=== PATIENT | female | born 1955 | race Two or more races ===

== ENCOUNTER → 2018-06-10 | Day surgery (SDC) | payer OTHER, MEDICAID ==
[~2018-06-10] MED LIST: ALBUTEROL SULFATE 2.5 MG/3 ML NEBU. NEB PRN; AMLO10TA6 PO; ASPI81TA50 PO; ATEN100T PO; ATROPINE 0.5 MG/5 ML DISP.SYRIN. IV PRN; CETI10TA22 PO; DULO60CA6 PO; IV RINGERS SOLUTION,LACTATED 1,000 ML IV SCH; LEVO175T5 PO; LIDOCAINE 2% PF Vial for OR 5 ML VIAL. ONE; NALOXONE 0.4 MG/ML VIAL. IV PRN; OMEP20CA9 PO; ONDANSETRON PF 4 MG/2 ML VIAL. IV PRN; PROPOFOL 20 ML IV ONE; PROPOFOL 40 ML IV ONE
[2018-06-10 13:50] VITALS: BP 116/70
--- NOTE | 2018-06-14 14:09 | PATHOLOGY ---
[facility] Accession Number: [id number] . 01 Material submitted: . TRANSVERSE COLON POLYP . 01 Clinical history: . Screen . 02 Diagnosis: Colon, transverse, biopsy: - Adenomatous polyp. . (SKM:mml; 06/14/18) QLM/06/14/2018 . 02 Electronically signed: . Cuate Coughlin MD, Pathologist NPI- [id number] . 01 Gross description: . Received in formalin labeled "Mary Ann Roman, transverse colon polyp," is a single segment of bravo soft tissue measuring 0.3 cm in maximum dimension. The specimen is entirely submitted in cassette A1. (TSD; 06/13/2018) TOB/TOB . 02 Pathologist provided ICD-10: D12.3 . 02 CPT . 817047 Specimen Comment: A courtesy copy of this report has been sent to Specimen Comment: [phone]. Specimen Comment: Report sent to / DR RUELAS Specimen Comment: A duplicate report has been generated due to demographic updates. Performed at: [facility] [address] [facility] [address], [place] [id number] MD Rambo Tyler MD Phone: [phone] Performed at: 02 [place] [id number] [address] [id number] MD Chip Ibarra MD Phone: [phone]
== END | disposition home or self-care (01) ==
LOC: SURG 10:36
PROVIDERS: ATTEND Internal Medicine Gastroenterology
DX: Z12.11 Encounter for screening for malignant neoplasm of colon (principal); D12.3 Benign neoplasm of transverse colon; K57.30 Diverticulosis of large intestine without perforation or abscess without bleeding; K22.2 Esophageal obstruction; K21.0 Gastro-esophageal reflux disease with esophagitis; I10 Essential (primary) hypertension; Z88.0 Allergy status to penicillin; Z88.6 Allergy status to analgesic agent; Z79.82 Long term (current) use of aspirin; Z79.899 Other long term (current) drug therapy; Z98.890 Other specified postprocedural states
CPT/HCPCS: 43235; 43450; 45380; 88305; J2704; J3010; J7120; J2001